=== PATIENT | male | born 1975 | race Caucasian/White ===

== ENCOUNTER 2024-04-07 06:24 | Day surgery (SDC) | payer BC, SELFPAY | END 2024-04-07 11:23 | disposition home or self-care (01) | LOC: GI 06:24 | PROVIDERS: ATTENDING PHYSICIAN Internal Medicine | DX: Z12.11 Encounter for screening for malignant neoplasm of colon (principal); K64.8 Other hemorrhoids; K57.30 Diverticulosis of large intestine without perforation or abscess without bleeding; K64.4 Residual hemorrhoidal skin tags | CPT/HCPCS: G0121 ==